=== PATIENT | female | born 1995 | race American Indian/Alaskan Native ===

== ENCOUNTER 2023-07-10 20:48 | Emergency (ER) | payer BC ==
[~2023-07-10] VITALS: Ht 167.6 cm; Wt 86.4 kg
[2023-07-11 01:00] VITALS: BP 122/79; PULSE 72; TEMP 98
== END 2023-07-11 01:00 | disposition home or self-care (01) ==
LOC: COL.ER 20:48
DX: S93.402A Sprain of unspecified ligament of left ankle, initial encounter (principal); W10.9XXA Fall (on) (from) unspecified stairs and steps, initial encounter